=== PATIENT | male | born 1960 | race Caucasian/White ===

== ENCOUNTER 2017-12-27 11:29 | Outpatient (CLI) ==
--- NOTE | 2017-12-29 22:37 | MRI ---
EXAM: Lumbar spine MRI with and without contrast. HISTORY: Back pain. Spinal stenosis. COMPARISON: None. TECHNIQUE: Multiplanar, multisequence MR images were acquired lumbar spine before and after administ ration of intravenous contrast. The study is degraded by decreased [id number] which produces de creased spatial and contrast resolution. FINDINGS: Conus medullaris ends at T12-L1 and has normal signal intensity. There is no abnormal lep tomeningeal contrast enhancement. Canal diameter is developmentally narrow and there is epidural lip omatosis. Five non-rib bearing lumbar vertebra are present. There is minor lower lumbar dextroscolio sis and straightening of the usual lumbar lordosis. The lumbar vertebra are generally normal in heig ht. Ventral and lateral osteophytes are present. Intrinsic bone marrow signal is heterogeneous with areas of fatty infiltration and increased dark T1 and T2 signal that may represent red marrow reconv ersion. At T12-L1, there is marked disc space narrowing with mild endplate irregularity and moderate right anterior modic type 1 endplate changes. At L1-2, there is a diffuse disc osteophyte complex t hat is asymmetric to the right with marked right lateral disc space narrowing, mild endplate irregula rity and moderate modic type 3 changes. At L2-3, there is marked disc space narrowing with disc desic cation and irregular cavity of the L3 superior endplate. At L4-5 and L5-S1, there is marked disc spa ce narrowing with moderate modic type 2 endplate changes. There are postoperative PLIF changes at L5 -S1. Metallic artifact is present consistent with an anterior interbody graft and posterior t pedicl e screw and júnior fixation from L5-S1. Chronic Schmorl's nodes are present at T12, L1 and L3. The partially visualized liver, spleen and kidneys are unremarkable. There is fatty infiltration in the medial right psoas muscle. T12-L1: There is a mild diffuse disc bulge and small right paracentral disc protrusion that effaces the right lateral recess where it may adversely contact the right L1 nerve roots. Minor bilateral fa cet arthropathy and ligamentum flavum hypertrophy is present. There is prominent dorsal epidural fat . This causes mild spinal stenosis and mild right neural foraminal stenosis. AP diameter of the the vasyl sac is 8.3 mm. L1-2: There is a diffuse spondylotic disc bulge that effaces the ventral thecal sac and dorsal epidu ral lipomatosis. Mild bilateral hypertrophic facet arthropathy and ligamentum flavum hypertrophy is present. There is moderately severe spinal stenosis and mild to moderate bilateral foraminal stenosi s. AP diameter of the thecal sac is 5.3 mm. L2-3: There is a mild diffuse spondylotic disc bulge that is asymmetric to the left and a small cent ral disc extrusion which effaces the ventral thecal sac. Dorsal epidural lipomatosis is present and there is severe spinal stenosis and mild left foraminal stenosis. AP diameter of the thecal sac is 3. 7 mm. L3-4: There is a diffuse spondylotic ridge that is asymmetric to the left which encroaches on the le ft L3 nerve exiting the neural foramen. There is a small right paracentral disc protrusion which eff aces the ventral thecal sac and dorsal epidural lipomatosis. There is severe spinal stenosis and mil d to moderate right and mild left neural foraminal stenosis. AP diameter of the thecal sac is 3.7 mm . L4-5: There is a diffuse spondylotic ridge that is asymmetric to the left which encroaches on the le ft L4 nerve exiting the neural foramen. Dorsal epidural lipomatosis and moderate bilateral hypertrop hic facet arthropathy and ligamentum flavum hypertrophy is present. There is severe spinal stenosis, lateral recess stenosis with encroachment left L5 nerve roots and moderate left and mild to moderate right neural foraminal stenosis. AP diameter of the thecal sac is 3 mm. L5-S1: There are postoperative anterior discectomy, interbody fusion, bilateral decompressive teresita ctomy partial facetectomy posterior spinal fusion changes. Left lateral endplate osteophytes are pre sent and there is residual facet arthropathy. There is mild left neural foraminal stenosis. No cent ral canal stenosis is present. AP diameter of the thecal sac is 11.4 mm. IMPRESSION: 1. Extensive lumbar degenerative spondylosis which in this patient with a developmentally narrow can al and epidural lipomatosis causes mild T12-L1, moderately severe L1-2 and severe L2-3, L3-4 and L4-5 central canal stenosis. 2. Small right paracentral disc protrusion T12-L1 that may encroach on the right L1 nerve roots. 3. Small central disc extrusion L2-3. 4. Post L5-S1 microdiskectomy without central canal stenosis. 5. Mild to moderate bilateral L1-2, mild to moderate right L3-4 and mild to moderate right and moder ate left L4-5 neural foraminal stenosis.
== END 2017-12-27 11:30 | disposition home or self-care (01) ==
LOC: RAD 11:29
PROVIDERS: ATTEND Nurse Practitioner
DX: M48.00 Spinal stenosis, site unspecified (principal); M54.9 Dorsalgia, unspecified
CPT/HCPCS: 36415; 82565